=== PATIENT | male | born 1950 | race Caucasian/White ===

== ENCOUNTER 2020-02-01 16:28 | Emergency (ER) | payer MEDICAID ==
[~2020-02-01] VITALS: Ht 180.3 cm; Wt 88.0 kg
[2020-02-01] MEDS ORDERED: NITR0.4T48 SL (16:39)
[2020-02-01] MEDS ORDERED: SIMV-46 PO (16:39)
[2020-02-01] MEDS ORDERED: ASPI-605 PO (16:39)
[2020-02-01] MEDS ORDERED: CLOP75TA15 PO (16:39)
[2020-02-01] MEDS ORDERED: CONCOR PO (16:39)
--- NOTE | 2020-02-01 16:40 | NUR ---
Dr. Santana at the bedside for MSE.
[2020-02-01 16:52] VITALS: BP 151/98
[2020-02-01] MEDS ORDERED: CLONIDINE HCL 0.2 MG TABLET ONE (16:53)
[2020-02-01] MEDS ORDERED: CLONIDINE HCL 0.2 MG TABLET PO ONE (17:00)
--- NOTE | 2020-02-01 17:35 | NUR ---
Patient discharged to home in stable condition. Written and verbal after care instructions given. Patient verbalizes understanding of instructions. Stressed follow up or return to ER for worsening s/s.
== END 2020-02-01 17:35 | disposition home or self-care (01) ==
LOC: ER 16:39
DX: R51 Headache (principal); I10 Essential (primary) hypertension; I25.10 Atherosclerotic heart disease of native coronary artery without angina pectoris; Z95.5 Presence of coronary angioplasty implant and graft; Z79.82 Long term (current) use of aspirin; Z79.02 Long term (current) use of antithrombotics/antiplatelets; Z79.899 Other long term (current) drug therapy
CPT/HCPCS: A4663